=== PATIENT | female | born 1980 | race Caucasian/White ===

== ENCOUNTER → 2016-11-27 | Outpatient (CLI) | payer MEDICAID | END | disposition home or self-care (01) | LOC: PETCFH 11:16 | PROVIDERS: ATTEND Internal Medicine Gastroenterology | DX: K83.5 Biliary cyst (principal); K21.9 Gastro-esophageal reflux disease without esophagitis; R13.19 Other dysphagia; Z68.33 Body mass index [BMI] 33.0-33.9, adult | CPT/HCPCS: 78227; A9537 ==